=== PATIENT | female | born 1950 | race Caucasian/White ===

== ENCOUNTER 2018-02-12 13:50 | Emergency (ER) | payer OTHER ==
[~2018-02-12] VITALS: Ht 172.7 cm; Wt 60.0 kg
[~2018-02-12 13:50] MED LIST: LORTA5 PO
[2018-02-12 14:03] VITALS: BP 124/86; PULSE 101; RESP 18; TEMP 97.6; O2SAT 97
[2018-02-12] MEDS ORDERED: GABA100C4 PO (14:10)
--- NOTE | 2018-02-12 14:19 | PD ---
HPI Chief Complaint: Pain: Acute or Chronic Time Seen by Provider: 14:10 (Arnaldo Blackwood MD) Time Seen by Provider: 14:10 (Lorenzo Baig) Travel History International Travel<30 days: No Contact w/Intl Traveler<30days: No Traveled to known affect area: No (Arnaldo Blackwood MD) International Travel<30 days: No Contact w/Intl Traveler<30days: No (Lorenzo Baig) History of Present Illness HPI Patient has been previously diagnosed with sciatica and was given medications. However now the patient returns with breakthrough pain radiating down her right buttock area. Patient has been given medications Neurontin and meloxicam for pain control. This diagnosis may back in 2016. Today she is purely here for breakthrough pain control. States allergy to penicillin and ciprofloxacin as well as sulfa drugs Past medical history significant for hypothyroidism, apparent GI issues including obstruction and status post loop colostomy, , D&C, hysterectomy, (Arnaldo Blackwood MD) HPI 67-year-old female presents emergency department with history of "sciatica" to the left lower back and hip since October. She states the last 3 days she has had worsening pain specifically in the left buttock, which is worse with sitting, standing too long, or walking any distance. She states it does not radiate down into the leg, and she denies numbness, tingling, or weakness. She has no bowel or bladder changes. No recent fever or chills. No rash. Patient was previously treated with meloxicam which she stopped as it did not help, as well as gabapentin 100 mg 3 times daily which he is not currently taking as it did not seem to make things better. She has been taking Tylenol which helps more than anything. Currently the pain is described as a bad toothache pain which is constant. It is 8 out of 10. She is allergic to sulfa, Cipro, and penicillin. (Lorenzo Baig) [facility] Past Medical History Arthritis: No Asthma: No Autoimmune Disease: No Anxiety: No Depression: No Heart Rhythm Problems: No Cancer: No Cardiovascular Problems: No High Cholesterol: No Chemotherapy: No Chest Pain: No Congestive Heart Failure: No COPD: No Cerebrovascular Accident: No Diabetes: No Endocrine: Yes GERD: No Genitourinary: No Hepatitis: No Hiatal Hernia: No Immune Disorder: No Kidney Stones: No Musculoskeletal: No Neurologic: No Psychiatric: No Reproductive: No Respiratory: No Migraines: No Radiation Therapy: No Renal Failure: No Seizures: No Sickle Cell Disease: No Sleep Apnea: No Thyroid Disease: Yes (HX HYPO ) Ulcer: No Tetanus Vaccination: > 5 Years Influenza Vaccination: No ?: Not (Arnaldo Blackwood MD) Past Surgical History Abdominal Surgery: Yes (LOOP COLOSTOMY) AICD: No Arteriovenous Shunt: No Cardiac Surgery: No Section: Yes Ear Surgery: No Endocrine Surgery: No Eye Surgery: No Genitourinary Surgery: No Gynecologic Surgery: Yes (C SECTION, D&C, HYSTERECTOMY) Hysterectomy: Yes Insulin Pump: No Joint Replacement: No Oral Surgery: No Pacemaker: No Thoracic Surgery: No (Arnaldo Blackwood MD) Social History Alcohol Use: No Tobacco Use: No Substance Use: No (Arnaldo Blackwood MD) Allergies-Medications (Allergen,Severity, Reaction): Coded Allergies: ciprofloxacin (Unverified Allergy, Mild, 02/12/18) Sulfa (Sulfonamide Antibiotics) (Unverified Allergy, Unknown, SEVERE ABDOMINAL PAIN, 02/12/18) penicillin G (Unverified Adverse Reaction, Unknown, ABD PAIN, 02/12/18) Reported Meds & Prescriptions Reported Meds & Active Scripts Active Reported Gabapentin 100 Mg Cap 100 Mg PO TID (Lorenzo Baig) Review of Systems General / Constitutional: No: Fever Eyes: No: Visual changes HENT: No: Headaches Cardiovascular: No: Chest Pain or Discomfort Respiratory: No: Shortness of Breath Gastrointestinal: No: Abdominal Pain Genitourinary: No: Dysuria Musculoskeletal: Positive: Limited ROM, Pain Skin: No Rash Neurologic: No: Weakness Psychiatric: No: Depression Endocrine: No: Polydipsia Hematologic/Lymphatic: No: Easy Bruising (Arnaldo Blackwood MD) Except as stated in HPI: all other systems reviewed are Neg General / Constitutional: No: Fever Eyes: No: Visual changes HENT: No: Headaches Cardiovascular: No: Chest Pain or Discomfort Respiratory: No: Shortness of Breath Gastrointestinal: No: Abdominal Pain Genitourinary: No: Dysuria Musculoskeletal: Positive: Arthralgias, Pain, No: Limited ROM Skin: No Rash Neurologic: No: Weakness Psychiatric: No: Depression Endocrine: No: Polydipsia Hematologic/Lymphatic: No: Easy Bruising (Lorenzo Baig) Physical Exam Narrative GENERAL: SKIN: Warm and dry. HEAD: Atraumatic. Normocephalic. EYES: Pupils equal and round. No scleral icterus. No injection or drainage. ENT: No nasal bleeding or discharge. Mucous membranes pink and moist. NECK: Trachea midline. No JVD. CARDIOVASCULAR: Regular rate and rhythm. RESPIRATORY: No accessory muscle use. Clear to auscultation. Breath sounds equal bilaterally. GASTROINTESTINAL: Abdomen soft, non-tender, nondistended. MUSCULOSKELETAL: Extremities without clubbing, cyanosis, or edema. No obvious deformities. NEUROLOGICAL: Awake and alert. No obvious cranial nerve deficits. Motor grossly within normal limits. Five out of 5 muscle strength in the arms and legs. Normal speech. PSYCHIATRIC: Appropriate mood and affect; insight and judgment normal. (Arnaldo Blackwood MD) Narrative GENERAL: Patient appears in no obvious distress. SKIN: Warm and dry. Normal color. Normal turgor. No rash. HEAD: Atraumatic. Normocephalic. EYES: Pupils equal and round. No scleral icterus. No injection or drainage. ENT: No nasal bleeding or discharge. Mucous membranes pink and moist. Pharynx is clear. Airway is patent. NECK: Trachea midline. Supple nontender. CARDIOVASCULAR: Regular rate and rhythm. RESPIRATORY: No accessory muscle use. Clear to auscultation. Breath sounds equal bilaterally. GASTROINTESTINAL: Abdomen soft, non-tender, nondistended. Hepatic and splenic margins not palpable. MUSCULOSKELETAL: Extremities without clubbing, cyanosis, or edema. No obvious deformities. Patient has negative straight leg raise pain bilaterally. She has normal hip rotation and extension. Patient is very specific tenderness with palpation over the sacroiliac joint on the left posterior pelvis. She has no lumbar pain with palpation. Strength is full throughout. NEUROLOGICAL: Awake and alert. No obvious cranial nerve deficits. Motor grossly within normal limits. Five out of 5 muscle strength in the arms and legs. Normal speech. PSYCHIATRIC: Appropriate mood and affect; insight and judgment normal. (Lorenzo Baig) Data Data Last Documented VS Vital Signs Date Time Temp Pulse Resp B/P (MAP) Pulse Ox O2 Delivery O2 Flow Rate FiO2 02/12/18 14:03 97.6 101 18 124/86 (99 97 (Lorenzo Baig) Orders Orders Prednisone (Deltasone) (02/12/18 14:30) (Lorenzo Baig) [facility] Medical Decision Making Medical Screen Exam Complete: Yes Emergency Medical Condition: Yes Medical Record Reviewed: Yes (Arnaldo Blackwood MD) Medical Screen Exam Complete: Yes Emergency Medical Condition: Yes Differential Diagnosis Left lower back pain. Lumbago. Sacroiliitis. Sciatica. Narrative Course Based on my history and physical I feel the patient has sacroiliitis. Radiographic imaging not felt warranted based on my history and physical at this time. Patient is given 60 mg prednisone p.o. now. Patient continued on prednisone 20 mg twice daily for 7 days. Patient is to take extra strength Tylenol as needed for pain. Recommended heat followed by ice frequently. Information regarding sacroiliitis is given to the patient Patient to follow-up with her primary care physician as needed. (Lorenzo Baig) Diagnosis Primary Impression: Sacroiliitis Patient Instructions: General Instructions, Sacroiliitis (ED) Additional Instructions: Based on my history and physical I feel the patient has sacroiliitis. Radiographic imaging not felt warranted based on my history and physical at this time. Patient is given 60 mg prednisone p.o. now. Patient continued on prednisone 20 mg twice daily for 7 days. Patient is to take extra strength Tylenol as needed for pain. Recommended heat followed by ice frequently. Information regarding sacroiliitis is given to the patient Patient to follow-up with her primary care physician as needed. Med/Other Pt SpecificInfo: Prescription(s) given (Lorenzo Baig) Disposition: 01 DISCHARGE HOME Condition: Stable Arnaldo Blackwood MD Feb 12, 2018 14:19 Lorenzo Baig Feb 12, 2018 14:27
[2018-02-12] MEDS ORDERED: PRED20 PO (14:28)
[2018-02-12] MEDS ORDERED: predniSONE 20 MG TAB PO ONE (14:30)
== END 2018-02-12 14:45 | disposition home or self-care (01) ==
LOC: NEPD 13:50
DX: M46.1 Sacroiliitis, not elsewhere classified (principal)
CPT/HCPCS: 99283; J7512

== ENCOUNTER 2018-02-16 07:57 | Emergency (ER) | payer OTHER ==
[~2018-02-16] VITALS: Ht 172.7 cm; Wt 65.0 kg
[~2018-02-16 07:57] MED LIST changes: +GABA100C4 PO; -LORTA5 PO; +PRED20 PO
[2018-02-16 08:02] VITALS: BP 166/68; PULSE 109; RESP 16; TEMP 97.6; O2SAT 100
--- NOTE | 2018-02-16 08:43 | PD ---
HPI Chief Complaint: Musculoskeletal Complaint Time Seen by Provider: 08:27 Travel History International Travel<30 days: No Contact w/Intl Traveler<30days: No Traveled to known affect area: No History of Present Illness HPI The patient was seen and examined in the presence of the nurse. This patient complains of pain in the left buttock. No sciatic radiation. Duration is 5 months. She says that a few days before the pain started she fell backwards onto the toilet and she is wondering if she cracked something. She was here a few days ago for the same pain and prescribed some prednisone which does not help. Symptom severity is moderate. Worse with ambulating. No alleviating factors. No fever or urinary complaints PFSH Past Medical History Arthritis: No Asthma: No Autoimmune Disease: No Anxiety: No Depression: No Heart Rhythm Problems: No Cancer: No Cardiovascular Problems: No High Cholesterol: No Chemotherapy: No Chest Pain: No Congestive Heart Failure: No COPD: No Cerebrovascular Accident: No Diabetes: No Endocrine: Yes Gastrointestinal Disorders: Yes (CURRENT OBSTRUCTION) GERD: No Genitourinary: No Headaches: No Hepatitis: No Hiatal Hernia: No Heparin Induced Thrombocytopen: No Hypertension: No Immune Disorder: No Implanted Vascular Access Dvce: No Kidney Stones: No Medical other: No Musculoskeletal: No Neurologic: No Psychiatric: No Reproductive: No Respiratory: No Migraines: No Radiation Therapy: No Renal Failure: No Seizures: No Sickle Cell Disease: No Sleep Apnea: No Thyroid Disease: Yes (HX HYPO ) Ulcer: No Past Surgical History Abdominal Surgery: Yes (LOOP COLOSTOMY) AICD: No Arteriovenous Shunt: No Cardiac Surgery: No Section: Yes Ear Surgery: No Endocrine Surgery: No Eye Surgery: No Genitourinary Surgery: No Gynecologic Surgery: Yes (C SECTION, D&C, HYSTERECTOMY) Hysterectomy: Yes Insulin Pump: No Joint Replacement: No Neurologic Surgery: No Oral Surgery: No Pacemaker: No Thoracic Surgery: No Other Surgery: Yes Social History Alcohol Use: No Tobacco Use: No Substance Use: No Allergies-Medications (Allergen,Severity, Reaction): Coded Allergies: ciprofloxacin (Unverified Allergy, Mild, 02/16/18) Sulfa (Sulfonamide Antibiotics) (Unverified Allergy, Unknown, SEVERE ABDOMINAL PAIN, 02/16/18) penicillin G (Unverified Adverse Reaction, Unknown, ABD PAIN, 02/16/18) Reported Meds & Prescriptions Reported Meds & Active Scripts Active Tramadol (Tramadol HCl) 50 Mg Tab 50 Mg PO Q6H PRN Prednisone 20 Mg Tab 20 Mg PO BID 7 Days Reported Gabapentin 100 Mg Cap 100 Mg PO TID Review of Systems General / Constitutional: No: Fever Eyes: No: Visual changes HENT: No: Headaches Cardiovascular: No: Chest Pain or Discomfort Respiratory: No: Shortness of Breath Gastrointestinal: No: Abdominal Pain Genitourinary: No: Dysuria Musculoskeletal: Positive: Pain Skin: No Rash Neurologic: No: Weakness Psychiatric: No: Depression Endocrine: No: Polydipsia Hematologic/Lymphatic: No: Easy Bruising Physical Exam Narrative GENERAL: Well-nourished, well-developed patient in no apparent distress. SKIN: Focused skin assessment reveals no rash and nodules. Skin is Warm and dry. HEAD: Atraumatic. Normocephalic. EYES: Pupils equal and round. No scleral icterus. No injection or drainage. ENT: No nasal bleeding or discharge. Mucous membranes pink and moist. NECK: Trachea midline. No JVD. CARDIOVASCULAR: Regular rate and rhythm. No murmur appreciated. RESPIRATORY: No accessory muscle use. Clear to auscultation. Breath sounds equal bilaterally. GASTROINTESTINAL: Abdomen soft, non-tender, nondistended. Hepatic and splenic margins not palpable. MUSCULOSKELETAL: No obvious deformities. No clubbing. No cyanosis. No edema. Straight leg raise negative. No midline tenderness of the back. No tenderness of the buttock or pelvis. No crepitus or bruising or instability NEUROLOGICAL: Awake and alert. No obvious cranial nerve deficits. Motor grossly within normal limits. Normal speech. PSYCHIATRIC: Appropriate mood and affect; insight and judgment normal. Data Data Last Documented VS Vital Signs Date Time Temp Pulse Resp B/P (MAP) Pulse Ox O2 Delivery O2 Flow Rate FiO2 02/16/18 08:58 92 18 130/65 (86) 100 Room Air 02/16/18 08:02 97.6 Orders Orders Pelvis, Ap Only (Routine) (02/16/18 ) Ketorolac Inj (Toradol Inj) (02/16/18 12:15) MDM Medical Decision Making Medical Screen Exam Complete: Yes Emergency Medical Condition: Yes Medical Record Reviewed: Yes Differential Diagnosis Sciatica, pelvic contusion, pelvic fracture, arthritis Narrative Course I have reviewed the patient's electronic medical record. I reviewed her visit from a few days ago. No imaging was done. Patient wants x-rays of her pelvis I have ordered an AP pelvic x-ray Objective findings on exam. She is neurologically intact. Pelvis x-ray is normal She is ambulatory I gave her Toradol injection I gave her 3 days of tramadol Diagnosis Primary Impression: Buttock pain Additional Instructions: The patient was advised to follow up with their physician and return if they worsen. The patient was warned about potential sedation for the medications they will receive on prescription. Med/Other Pt SpecificInfo: Prescription(s) given Scripts Tramadol (Tramadol) 50 Mg Tab 50 MG PO Q6H Y for PAIN, #12 TAB 0 Refills Prov: Vamshi Gilliam MD 02/16/18 Disposition: 01 DISCHARGE HOME Condition: Stable Vamshi Gilliam MD Feb 16, 2018 08:43
[2018-02-16 08:58] VITALS: BP 130/65; PULSE 92; RESP 18; O2SAT 100
--- NOTE | 2018-02-16 09:20 | RADRPT ---
EXAM DATE/TIME: 02/16/2018 09:15 [place] COMPARISON: No previous studies available for comparison. INDICATIONS : Left side pelvic pain, fall. MEDICAL HISTORY : None. SURGICAL HISTORY : None. ENCOUNTER: Initial ACUITY: 4 - 6 months PAIN SCORE: 10/10 LOCATION: Left posterior pelvis FINDINGS: A single frontal view of the pelvis demonstrates no evidence of fracture. The bony pelvic ring is in tact. Bony mineralization is normal. The soft tissues are intact. CONCLUSION: No evidence of pelvic fracture. Enmanuel Correa MD on February 16, 2018 at 9:18 Board Certified Radiologist. This report was verified electronically.
[2018-02-16] MEDS ORDERED: TRAM50TA PO (12:08)
[2018-02-16] MEDS ORDERED: KETOROLAC TROMETHAMINE 60 MG/2 ML (IM) VIAL IM ONE (12:15)
[2018-02-16] MEDS ORDERED: MACR100C2 PO (19:25)
[2018-02-16] MEDS ORDERED: ROBA500T PO (19:30)
== END 2018-02-16 12:47 | disposition home or self-care (01) ==
LOC: NEPC 07:57
DX: R52 Pain, unspecified (principal); W18.11XA Fall from or off toilet without subsequent striking against object, initial encounter; Z88.0 Allergy status to penicillin; Z88.2 Allergy status to sulfonamides; Z79.899 Other long term (current) drug therapy
CPT/HCPCS: 72170; 96372; 99283; J1885

== ENCOUNTER 2018-02-16 17:04 | Emergency (ER) | payer OTHER ==
[~2018-02-16] VITALS: Ht 174 cm; Wt 63.6 kg
[~2018-02-16 17:04] MED LIST changes: +TRAM50TA PO
[2018-02-16 17:14] VITALS: BP 104/52; PULSE 86; RESP 20; TEMP 97.9; O2SAT 98
--- NOTE | 2018-02-16 18:37 | PD ---
HPI Chief Complaint: Pain: Acute or Chronic Time Seen by Provider: 18:21 Travel History International Travel<30 days: No Contact w/Intl Traveler<30days: No Traveled to known affect area: No History of Present Illness HPI 67-year-old female arrives via EMS with continued left buttocks pain that has started in September after falling in her bathroom and has continued with worsening. She was seen here this morning and a pelvic x-ray was done which was unremarkable. She wants to know what is going on. Believes that maybe she has an infection and wants blood work done. She has followed up with her primary care and had x-ray which was normal. She tried to start physical therapy but it did not work out. She has an appointment with her primary care provider on Thursday for follow-up. Denies encopresis, incontinence, saddle anesthesias. Denies fever, vomiting, abdominal pain. Says she has to strain when she urinates. Denies dysuria. Denies radiation of pain. Denies cancer, IV drug use. Has tried taking Tylenol, using a heating pad, taking Neurontin, meloxicam, prednisone for symptom management. No known relieving factors. Pain is constantly aggravated. Rates pain 10/10. Describes it as somebody is stabbing her butt. Primary care provider is [facility]. Allergies to Cipro, penicillin, sulfa. Denies significant past medical history. Has no other medical complaints. No other modifying factors or associated signs and symptoms. PFSH Past Medical History Arthritis: No Asthma: No Autoimmune Disease: No Anxiety: No Depression: No Heart Rhythm Problems: No Cancer: No Cardiovascular Problems: No High Cholesterol: No Chemotherapy: No Chest Pain: No Congestive Heart Failure: No COPD: No Cerebrovascular Accident: No Diabetes: No Endocrine: Yes Gastrointestinal Disorders: Yes (CURRENT OBSTRUCTION) GERD: No Genitourinary: No Headaches: No Hepatitis: No Hiatal Hernia: No Heparin Induced Thrombocytopen: No Hypertension: No Immune Disorder: No Implanted Vascular Access Dvce: No Kidney Stones: No Musculoskeletal: No Neurologic: No Psychiatric: No Reproductive: No Respiratory: No Migraines: No Radiation Therapy: No Renal Failure: No Seizures: No Sickle Cell Disease: No Sleep Apnea: No Thyroid Disease: Yes (HX HYPO ) Ulcer: No Past Surgical History Abdominal Surgery: Yes (LOOP COLOSTOMY) AICD: No Arteriovenous Shunt: No Cardiac Surgery: No Section: Yes Ear Surgery: No Endocrine Surgery: No Eye Surgery: No Genitourinary Surgery: No Gynecologic Surgery: Yes (C SECTION, D&C, HYSTERECTOMY) Hysterectomy: Yes Insulin Pump: No Joint Replacement: No Neurologic Surgery: No Oral Surgery: No Pacemaker: No Thoracic Surgery: No Other Surgery: Yes Social History Alcohol Use: No Tobacco Use: No Substance Use: No Allergies-Medications (Allergen,Severity, Reaction): Coded Allergies: ciprofloxacin (Unverified Allergy, Mild, 02/16/18) Sulfa (Sulfonamide Antibiotics) (Unverified Allergy, Unknown, SEVERE ABDOMINAL PAIN, 02/16/18) penicillin G (Unverified Adverse Reaction, Unknown, ABD PAIN, 02/16/18) Reported Meds & Prescriptions Reported Meds & Active Scripts Active Macrobid (Nitrofurantoin Monoh/Nitrofur Macro) 100 Mg Cap 100 Mg PO BID 5 Days Tramadol (Tramadol HCl) 50 Mg Tab 50 Mg PO Q6H PRN Prednisone 20 Mg Tab 20 Mg PO BID 7 Days Reported Gabapentin 100 Mg Cap 100 Mg PO TID Review of Systems Except as stated in HPI: all other systems reviewed are Neg Physical Exam Narrative GENERAL: Well-nourished, well-developed female patient, in no acute distress; afebrile, nontoxic-appearing SKIN: Warm and dry. Skin of the left buttocks is without erythema, edema; no palpable lumps or masses on deep palpation. HEAD: Atraumatic. Normocephalic. EYES: Pupils equal and round. No scleral icterus. No injection or drainage. ENT: Mucosa pink and moist. Airway patent. NECK: Trachea midline. CARDIOVASCULAR: Regular rate. RESPIRATORY: No accessory muscle use. GASTROINTESTINAL: Flat. MUSCULOSKELETAL: Bilateral lower extremities supple and non-tense with 2+ pedal pulses and sensory intact; with full range of motion and 5/5 strength. 2 + DTRs bilaterally. Active dorsiflexion and extension of bilateral feet. Bilateral straight leg raise is negative for low back pain. Ambulatory in room with normal gait. Sitting up in bed at 90. No obvious deformities. No clubbing. No cyanosis. No edema. BACK: No midline point tenderness on palpation of the lumbar spine. Tenderness on palpation of the left mid buttocks. No obvious deformities. NEUROLOGICAL: Awake and alert. Oriented 3. No obvious cranial nerve deficits. Motor grossly within normal limits. Normal speech. Moves all extremities. 5/5 strength to all extremities. Sensory intact. PSYCHIATRIC: Appropriate mood and affect; insight and judgment normal. Data Data Last Documented VS Vital Signs Date Time Temp Pulse Resp B/P (MAP) Pulse Ox O2 Delivery O2 Flow Rate FiO2 02/16/18 17:14 97.9 86 20 104/52 (69) 98 Orders Orders Tramadol (Ultram) (02/16/18 18:45) Urinalysis - C+S If Indicated (02/16/18 18:41) Urine Culture (02/16/18 18:40) Lidocaine 1% Inj (50 Ml) (Xylocaine 1% I (02/16/18 19:30) Ceftriaxone Inj (Rocephin Inj) (02/16/18 19:30) Ed Discharge Order (02/16/18 19:26) Labs Laboratory Tests Test 02/16/18 18:40 Urine Color YELLOW Urine Turbidity HAZY Urine pH 5.5 Urine Specific [place] 1.045 Urine Protein 30 mg/dL Urine Glucose (UA) NEG mg/dL Urine Ketones TRACE mg/dL Urine Occult Blood NEG Urine Nitrite NEG Urine Bilirubin NEG Urine Urobilinogen 4.0 MG/DL Urine Leukocyte Esterase SMALL Urine RBC 33 /hpf Urine WBC 9 /hpf Urine Squamous Epithelial Cells 16 /hpf Urine Bacteria OCC /hpf Urine Hyaline Casts 9 /lpf Urine Mucus MOD /lpf Microscopic Urinalysis Comment CULTURE INDICATED MDM Medical Decision Making Medical Screen Exam Complete: Yes Emergency Medical Condition: Yes Medical Record Reviewed: Yes Differential Diagnosis Sacroiliitis, buttock pain, UTI, less likely cellulitis, less likely abscess Narrative Course 67-year-old female with left buttock pain with worsening since September. She has been seen here a few times for the same complaint, last time this morning. Pelvic x-ray was obtained this morning and was unremarkable. She has had outpatient imaging which was normal, per the patient. She does report having to strain to urinate. I will check a urine to rule out UTI. I do not believe the symptoms are related to her pain. I discussed nerve pain in great detail and instructed the patient to follow-up with primary care provider and neurosurgeon if symptoms persist. She was given a prescription for tramadol this morning which she currently has been filled at a pharmacy. Tramadol and urinalysis ordered. 1927: Analysis with signs of infection. Rocephin administered in the ER. Macrobid and Robaxin prescribed for home. Instructed patient to follow up with primary care provider at scheduled appointment on Thursday. Instructed patient to follow-up with neurosurgeon. patient verbalizes understanding and agreement with treatment plan. Patient is medically cleared and stable for discharge. Discussed reasons to return to the emergency department. Patient agrees with treatment plan. The patients vital signs are stable and the patient is stable for outpatient follow-up and treatment. Patient discharged home, stable and in no acute distress. Diagnosis Primary Impression: Left buttock pain Additional Impression: UTI (urinary tract infection) Qualified Codes: N39.0 - Urinary tract infection, site not specified; R31.9 - Hematuria, unspecified Referrals: Neurosurgeon Primary Care Physician Patient Instructions: General Instructions, Urinary Tract Infection in Women ( ED) Additional Instructions: Tylenol or ibuprofen as directed and as needed for pain Heating pad and/or ice to affected area to reduce pain Avoid aggravating activities; increase activity as tolerated Follow-up with primary care provider Return to emergency department immediately with worsening of symptoms Med/Other Pt SpecificInfo: Prescription(s) given Scripts Methocarbamol (Robaxin) 500 Mg Tab 500 MG PO QID Y for MUSCLE SPASM, #30 TAB 0 Refills Prov: Lety Bruno 02/16/18 Nitrofurantoin Monohydrate Macrocrystals (Macrobid) 100 Mg Cap 100 MG PO BID for Infection for 5 Days, #10 CAP 0 Refills Prov: Lety Bruno 02/16/18 Disposition: 01 DISCHARGE HOME Condition: Stable Lety Bruno Feb 16, 2018 18:37
[2018-02-16] MEDS ORDERED: traMADol HCL 50 MG TAB PO ONE (18:45)
[2018-02-16 19:08] LABS: BACTERIA, URINE OCC /hpf; BILIRUBIN, URINE NEG (NEG); BLOOD, URINE NEG (NEG); GLUCOSE,URINE NEG (NEG); HYALINE CAST, URINE 9 /lpf (RARE); KETONE, URINE TRACE mg/dL (NEG); MUCUS URINE MOD /lpf (OCC); NITRITE,URINE NEG (NEG); PH, URINE 5.5 (5.0-8.5); SQUAMOUS EPITHELIAL CELL URINE 16 /hpf (0-5); URINE COLOR YELLOW (YELLW/STRAW); URINE LEUKOCYTE ESTERASE SMALL (NEG)
[2018-02-16] MEDS ORDERED: MACR100C2 PO (19:25)
[2018-02-16] MEDS ORDERED: ROBA500T PO (19:30)
[2018-02-16] MEDS ORDERED: LIDOCAINE HCL 1% 50 ML VIAL IM ONE (19:30)
== END 2018-02-16 20:05 | disposition home or self-care (01) ==
LOC: NEPK 17:04
DX: R52 Pain, unspecified (principal); N39.0 Urinary tract infection, site not specified; R31.9 Hematuria, unspecified; Z88.0 Allergy status to penicillin; Z88.2 Allergy status to sulfonamides; Z79.899 Other long term (current) drug therapy
CPT/HCPCS: 81001; 87086; 96372; 99283; J0696